=== PATIENT | male | born 1975 | race Two or more races ===

== ENCOUNTER 2021-07-15 16:57 | Emergency (ER) | payer MEDICAID, SELFPAY ==
--- NOTE | ~2021-07-15 | XR_ITS ---
Examination: XR foot RT 2V, XR tibia fibula RT 2V Indication: Small circular open wounds for one month. Rule out osteo Comparison: No pertinent prior studies are currently available for comparison. Technique: Frontal and lateral views of the right tibia and fibula. 3 views of the right foot Findings: Bones are normal anatomic alignment. I do not appreciate any acute fracture or dislocation. No bony destructive lesions or periosteal reaction. Mild soft tissue swelling is seen about the calf. No radiopaque foreign body or obvious soft tissue gas. XR/XR foot RT 2V Impression: Mild soft tissue swelling but no acute underlying bony abnormality.
--- NOTE | ~2021-07-15 | XR_ITS ---
Examination: XR foot RT 2V, XR tibia fibula RT 2V Indication: Small circular open wounds for one month. Rule out osteo Comparison: No pertinent prior studies are currently available for comparison. Technique: Frontal and lateral views of the right tibia and fibula. 3 views of the right foot Findings: Bones are normal anatomic alignment. I do not appreciate any acute fracture or dislocation. No bony destructive lesions or periosteal reaction. Mild soft tissue swelling is seen about the calf. No radiopaque foreign body or obvious soft tissue gas. XR/XR tibia fibula RT 2V Impression: Mild soft tissue swelling but no acute underlying bony abnormality.
[2021-07-15 18:19] VITALS: BP 140/85; PULSE 89; RESP 18; TEMP 36.4; O2SAT 98; BMI 31.8
[2021-07-15 18:30] LABS: MANUAL DIFF FLAG NO
[2021-07-15 18:32] LABS: Mean Corpuscular Volume 93.2 fL (80.0-98.0); PLT CLUMP 1; SCAN SMEAR FLAG 1
[2021-07-15 18:34] LABS: Basophils Absolute Auto 0.1 X10*3/uL (0.0-0.2); Basophils Percent Auto 1.2 % (0-2); Eosinophils Absolute Auto 0.3 X10*3/uL (0.0-0.4); Eosinophils Percent Auto 3.5 % (0-4); Hematocrit 44.2 % (42.0-52.0); Hemoglobin 14.5 g/dl (14.0-18.0); Imm Gran Abs Auto 0.02 X10*3/uL (0.00-0.03); Imm Gran Pct Auto 0.2 % (0.0-0.4); Lymphocytes Absolute Auto 3.8 X10*3/uL (1.2-4.9); Mean Corpuscular HGB Conc 32.8 g/dl (31.0-36.0); Mean Corpuscular Hemoglobin 30.6 pg (27.0-33.0); Mean Platelet Volume 10.9 fL (9.4-12.4); Monocytes Absolute Auto 0.9 X10*3/uL (0.1-1.2); Monocytes Percent Auto 9.4 % (2-11); Neutrophils Absolute Auto 4.6 x10*3/uL (2.0-8.3); Neutrophils Percent Auto 46.7 % (45-73); Red Blood Count 4.74 X10*6/uL (4.60-5.80); Red Cell Distribution Width 16.3 % (11.0-16.0)
[2021-07-15 18:56] LABS: Alanine Aminotransferase 75 U/L (0-40); Albumin Level 2.4 g/dL (3.5-5.0); Alkaline Phosphatase 188 U/L (39-117); Anion Gap 12 (12-20); Aspartate Amino Transferase 146 U/L (5-37); Blood Urea Nitrogen 12 mg/dL (9-16); C Reactive Protein 1.54 mg/dL (< or = 0.50); Calcium 9.4 mg/dL (8.4-10.2); Carbon Dioxide 32 mmol/L (22-29); Chloride 96 mmol/L (96-108); Estimated Glomerular Filt Rate > 60; Glucose Random 175 mg/dL (60-115); Potassium 4.7 mmol/L (3.3-5.1); Sodium 135 mmol/L (135-145); Total Protein 10.1 g/dL (6.5-8.0)
[2021-07-15 19:02] LABS: Platelet Count 123 X10*3/uL (160-400); White Blood Count 9.8 X10*3/uL (4.8-10.8)
[2021-07-15 19:37] LABS: Erythrocyte Sedimentation Rate 73 MM/HR (0-15)
== END 2021-07-16 00:56 | disposition left against medical advice (07) ==
PROVIDERS: Emergency Provider Emergency Medicine
DX: L97.919 Non-pressure chronic ulcer of unspecified part of right lower leg with unspecified severity (principal)
CPT/HCPCS: 36415; 73590; 73620; 80053; 85025; 85652; 86140; 99282; 99283

== ENCOUNTER 2022-05-05 23:08 | Emergency (ER) | payer MEDICAID, SELFPAY ==
[2022-05-05 23:18] VITALS: BP 185/85; PULSE 106; RESP 18; TEMP 37; O2SAT 97; BMI 28.2
--- NOTE | 2022-05-06 00:46 | ED_ITS ---
HPI - Skin/Abscess/Foreign Bdy General Chief complaint: Skin/Abscess/Foreign Body Stated complaint: Arm pain/No Inj Time Seen by Provider: 05/06/22 00:42 Source: patient Mode of arrival: ambulatory Limitations: no limitations History of Present Illness HPI narrative: Patient IVDA cocaine user, since yesterday noticed swelling with redness of the right forearm at the site of IVDA No fever no chills no history of MRSA infection Related Data Previous Rx's Medication Instructions Recorded cephalexin 500 mg capsule 500 mg PO QID 10 days #40 caps 05/06/22 doxycycline hyclate 100 mg tablet 100 mg PO BID #20 tabs 05/06/22 ibuprofen 600 mg tablet 600 mg PO Q6H PRN fever or pain 05/06/22 #30 tabs Allergies Allergy/AdvReac Type Severity Reaction Status Date / Time No Known Allergies Allergy Verified 05/05/22 23:21 Review of Systems Review of Systems: Yes all other systems are reviewed and are negative [facility] Past Medical History Medical History Diabetes HIV (human immunodeficiency virus infection) Social History Social History Alcohol intake: never Smoked in Last 30 Days: Yes Use of substances other than those prescribed or required for medical reasons: Yes Substance Use Type: Crack/Cocaine and Heroin Substance Use Frequency: Daily Advance Directives: No Advance Directives Information Provided: No Physical Exam Vital Signs: Vital Signs: Last Vital Signs Temp 98.6 F 05/05/22 23:18 Pulse 106 H 05/05/22 23:18 Resp 18 05/05/22 23:18 BP 185/85 H 05/05/22 23:18 Pulse Ox 97 05/05/22 23:18 O2 Del Method 05/05/22 23:18 BMI result Body Mass Index 28.2 Appearance: Alert. Oriented X3. No acute distress. Neck: Normal inspection. Neck supple. CVS: Normal heart rate and rhythm. Pulses normal. Respiratory: No respiratory distress. Equal air entry bilateral, Abdomen: Soft and nontender. Skin: Skin warm and dry. Extremities: Small 2 x 2 cm swelling of right forearm with redness and warmth Neuro: Oriented X 3. Medications Administered Discontinued Medications Generic Name Dose Route Start Last Admin Trade Name Freq PRN Reason Stop Dose Admin Cephalexin HCl 500 mg 05/06/22 00:54 05/06/22 01:00 Cephalexin 500 Mg Capsule PO 05/06/22 00:55 500 mg ONCE ONE Administration Doxycycline Monohydrate 100 mg 05/06/22 00:54 05/06/22 01:00 Doxycycline Monohydrate 100 Mg Capsule PO 05/06/22 00:55 100 mg ONCE ONE Administration Ibuprofen 600 mg 05/06/22 00:54 05/06/22 01:00 Ibuprofen 600 Mg Tablet PO 05/06/22 00:55 600 mg ONCE ONE Administration Lidocaine HCl 4 ml 05/06/22 00:54 05/06/22 01:00 Lidocaine Hcl 1 % Mpf 2 Ml Vial INFILTRATI 05/06/22 00:55 4 ml ONCE ONE Administration Medical Decision Making Medical Decision Making [facility] Narrative: I&D done only 1 cc of blood drained no pus drained. Sample sent for culture no signs of compartment syndrome no deeper infection neurovascular intact will discharge patient home on Keflex and doxycycline Lab Data [facility] Lab Attestation statement: I reviewed the patient's lab results. 05/06/22 00:49 05/06/22 00:49 Labs: Lab Results 05/06/22 05/06/22 Range/Units 00:49 00:49 WBC 5.2 (4.8-10.8) X10*3/uL RBC 4.13 L (4.60-5.80) X10*6/uL Hgb 12.5 L (14.0-18.0) g/dl Hct 36.1 L (42.0-52.0) % MCV 87.4 (80.0-98.0) fL MCH 30.3 (27.0-33.0) pg MCHC 34.6 (31.0-36.0) g/dl RDW 15.1 (11.0-16.0) % Plt Count 69 L D (160-400) X10*3/uL MPV 11.4 (9.4-12.4) fL Immature Gran % (Auto) 0.2 (0.0-0.4) % Neut % (Auto) 70.6 (45-73) % Lymph % (Auto) 21.5 (20-40) % [place] % (Auto) 6.3 (2-11) % Eos % (Auto) 0.8 (0-4) % Baso % (Auto) 0.6 (0-2) % Lymph # (Auto) 1.1 L (1.2-4.9) X10*3/uL [place] # (Auto) 0.3 (0.1-1.2) X10*3/uL Eos # (Auto) 0.0 (0.0-0.4) X10*3/uL Baso # (Auto) 0.0 (0.0-0.2) X10*3/uL Abs Immat Gran (auto) 0.01 (0.00-0.03) X10*3/uL Absolute Neuts (auto) 3.7 (2.0-8.3) x10*3/uL Absolute Nucleated RBC 0.000 (0.0-0.012) X10*3/uL Nucleated RBC % (auto) 0.0 (0.0-0.2) /100WBC Sodium 135 (135-145) mmol/L Potassium 3.6 D (3.3-5.1) mmol/L Chloride 102 (96-108) mmol/L Carbon Dioxide 26 (22-29) mmol/L Anion Gap 11 L (12-20) BUN 8 L (9-16) mg/dL Creatinine 0.82 (0.5-1.4) mg/dL Estim Creat Clear Calc 111.5 Estimated GFR > 60 Random Glucose 167 H (60-115) mg/dL Calcium 7.8 L D (8.4-10.2) mg/dL Total Bilirubin 1.1 H (0.0-1.0) mg/dL Direct Bilirubin 0.4 (0.0-0.5) mg/dL AST 78 H (5-37) U/L ALT 43 H (0-40) U/L Alkaline Phosphatase 161 H (39-117) U/L Total Protein 7.9 (6.5-8.0) g/dL Albumin 2.4 L (3.5-5.0) g/dL Lipase 35 (8-78) U/L Procedures Abscess I/D Site: upper extremity Side (if applicable): right Local Anesthetic: lidocaine 1% Amount of anesthesia used (mL): 4 Technique: needle aspiration and incised with blade Amount of fluid expressed (mL): 1 Sent for culture/gram staining?: Yes Irrigation: No Discharge Plan Discharge Clinical Impression: Abscess of skin or subcutaneous tissue Patient Disposition: Home, Self-Care Instructions: Abscess Incision and Drainage (DC) Additional Instructions: You have an early abscess on the right forearm from the IV drug use Take antibiotic as prescribed stop abusing IV drugs Follow-up with your PCP if not better or report to the ER if gets worse Prescriptions: New cephalexin 500 mg capsule 500 mg PO QID 10 Days Qty: 40 0RF ibuprofen 600 mg tablet 600 mg PO Q6H PRN (Reason: fever or pain) Qty: 30 0RF doxycycline hyclate 100 mg tablet 100 mg PO BID Qty: 20 0RF
[2022-05-06 00:54] LABS: MANUAL DIFF FLAG NO
[2022-05-06 00:58] LABS: Basophils Percent Auto 0.6 % (0-2); Eosinophils Percent Auto 0.8 % (0-4); Hematocrit 36.1 % (42.0-52.0); Hemoglobin 12.5 g/dl (14.0-18.0); Imm Gran Abs Auto 0.01 X10*3/uL (0.00-0.03); Imm Gran Pct Auto 0.2 % (0.0-0.4); Lymphocytes Absolute Auto 1.1 X10*3/uL (1.2-4.9); Lymphocytes Percent Auto 21.5 % (20-40); Mean Corpuscular HGB Conc 34.6 g/dl (31.0-36.0); Mean Corpuscular Hemoglobin 30.3 pg (27.0-33.0); Mean Corpuscular Volume 87.4 fL (80.0-98.0); Mean Platelet Volume 11.4 fL (9.4-12.4); Monocytes Absolute Auto 0.3 X10*3/uL (0.1-1.2); Monocytes Percent Auto 6.3 % (2-11); Neutrophils Absolute Auto 3.7 x10*3/uL (2.0-8.3); Neutrophils Percent Auto 70.6 % (45-73); Red Blood Count 4.13 X10*6/uL (4.60-5.80); Red Cell Distribution Width 15.1 % (11.0-16.0); White Blood Count 5.2 X10*3/uL (4.8-10.8)
[2022-05-06 01:00] LABS: Platelet Count 69 X10*3/uL (160-400)
[2022-05-06] MEDS: Lidocaine HCl 1 % MPF 2 ML VIAL 4 ML INFILTRATI (01:00)
[2022-05-06] MEDS: Ibuprofen 600 MG TABLET PO (01:00)
[2022-05-06] MEDS: Doxycycline Monohydrate 100 MG CAPSULE PO (01:00)
[2022-05-06] MEDS: cephALEXin 500 MG CAPSULE PO (01:00)
[2022-05-06 01:10] LABS: Alanine Aminotransferase 43 U/L (0-40); Albumin Level 2.4 g/dL (3.5-5.0); Alkaline Phosphatase 161 U/L (39-117); Anion Gap 11 (12-20); Aspartate Amino Transferase 78 U/L (5-37); Bilirubin Direct 0.4 mg/dL (0.0-0.5); Bilirubin Total 1.1 mg/dL (0.0-1.0); Blood Urea Nitrogen 8 mg/dL (9-16); Calcium 7.8 mg/dL (8.4-10.2); Carbon Dioxide 26 mmol/L (22-29); Chloride 102 mmol/L (96-108); Creatinine Clr Calc Pharmacy 111.5; Estimated Glomerular Filt Rate > 60; Glucose Random 167 mg/dL (60-115); Lipase 35 U/L (8-78); Potassium 3.6 mmol/L (3.3-5.1); Sodium 135 mmol/L (135-145); Total Protein 7.9 g/dL (6.5-8.0)
== END 2022-05-06 02:01 | disposition home or self-care (01) ==
PROVIDERS: Emergency Provider Internal Medicine
DX: L02.413 Cutaneous abscess of right upper limb (principal); Z79.899 Other long term (current) drug therapy
CPT/HCPCS: 10060; 36415; 80048; 80076; 83690; 85025; 87070; 87205; 99284